=== PATIENT | female | born 1980 | race Caucasian/White ===

== ENCOUNTER → 2016-12-04 | Outpatient (CLI) | payer BC ==
[~2016-12-04] MED LIST: FOLI1TAB7 PO
--- NOTE | 2016-12-04 12:19 | DIAGNOSTIC IMAGING REPORT ---
HYSTEROSALPINGOGRAM HISTORY: Infertility. FLUOROSCOPY TIME: 0.7 minutes. 4 fluoroscopic spot images. TECHNIQUE: The cervix was cannulated by the manager mobility-animal feeder and water soluble contrast was instilled into the uterus under fluoroscopic guidance. Multiple spot images were obtained. FINDINGS: The uterine cavity is normal in size, shape, and position. The right fallopian tube is patent and there is free peritoneal spill on the right. The left fallopian tube was not identified and is likely obstructed. IMPRESSION: 1. Normal uterus and right fallopian tube. 2. The left fallopian tube was not identified and is likely obstructed. Electronically signed by: Elieser Mccarthy M.D. 12/04/2016 12:17 PM Dictated Date/Time: 12/04/2016 12:16 PM
--- NOTE | 2016-12-04 13:15 | OPERATIVE REPORT ---
DATE OF OPERATION: 12/04/2016 PREOPERATIVE DIAGNOSIS: Primary infertility. POSTOPERATIVE DIAGNOSIS: Same. PROCEDURE: Hysterosalpingogram. SURGEON: Dr. Sakshi Jenkins. INDICATIONS FOR PROCEDURE: The patient is currently undergoing infertility workup with Dr. Mejia who recommended a hystersalpingogram. DESCRIPTION OF PROCEDURE: The patient was placed on the x-ray table where procedure was discussed. All questions were answered. Correct patient and procedure was verified. The speculum was placed in the vagina. The cervix and vagina were cleansed with Betadine. The anterior lip of the cervix was grasped with a single tooth tenaculum. The acorn manipulator was placed through the cervix and the radiopaque dye was injected under fluoroscopic guidance. On first attempt the manipulator must have gotten dislodged because the radiopaque dye flooded the vagina and not the uterus. A second attempt was made with replaced of the speculum, recleansing with Betadine and replacement of the manipulator. Under fluoroscopic guidance, the dye was injected and the uterus appeared normal in contour and shape. The right fallopian tube had adequate spill, the left fallopian tube showed no spill. The patient tolerated the procedure well. She is to continue antibiotics and pain control as recommended by Dr. Mejia. She is to follow up with him in the office. I attest to the content of the Intraoperative Record and any orders documented therein. Any exceptions are noted below. MTDD
== END | disposition home or self-care (01) ==
LOC: C.RAD 10:30
PROVIDERS: ATTEND Obstetrics & Gynecology
DX: Z31.41 Encounter for fertility testing (principal)

== ENCOUNTER → 2017-02-16 | Outpatient (CLI) | payer BC ==
[~2017-02-16] MED LIST changes: +ACET-749 PO; +FAMO20TA11 PO
[2017-02-16 12:58] LABS: INSULIN FASTING 45.6 mU/L (3-25); INSULIN LOG 1.659
[2017-02-16 12:59] LABS: PROLACTIN 17.11 ng/mL
[2017-02-16 13:45] LABS: ALKALINE PHOSPHATASE 52 U/L (45-117); ALT/SGPT 24 U/L (12-78); BLOOD UREA NITROGEN 9 mg/dl (7-18); BUN/CREATININE RATIO 10.8 (10-20); CALCIUM 8.7 mg/dl (8.5-10.1); CARBON DIOXIDE 24 mmol/L (21-32); CHLORIDE 108 mmol/L (98-107); CREATININE 0.84 mg/dl (0.60-1.20); GLUCOSE 96 mg/dl (70-99); GLUCOSE,FASTING 96 mg/dl (70-99); POTASSIUM 3.8 mmol/L (3.5-5.1); SODIUM 140 mmol/L (136-145)
[2017-02-16 13:56] LABS: ALB/GLOB RATIO 1.1 (0.9-2); AST/SGOT 16 U/L (15-37)
[2017-02-16 14:38] LABS: CALCULATED INSULIN SENSITIVITY 0.275; GLUCOSE LOG 1.9823
== END | disposition home or self-care (01) ==
LOC: C.LAB1850 09:32
PROVIDERS: ATTEND Obstetrics & Gynecology
DX: Z31.41 Encounter for fertility testing (principal); Z32.00 Encounter for pregnancy test, result unknown; K76.0 Fatty (change of) liver, not elsewhere classified

== ENCOUNTER → 2017-03-09 | Outpatient (CLI) | payer BC ==
[2017-03-09 12:10] LABS: URINE APPEARANCE CLEAR (CLEAR); URINE BILIRUBIN NEG (NEG); URINE COLOR YELLOW; URINE NITRITE NEG (NEG); URINE SPECIFIC GRAVITY 1.011 (1.000-1.030); UROBILINOGEN NEG (NEG)
[2017-03-09 12:13] LABS: MANUAL MICROSCOPIC REQUIRED? NO; REVIEW REQ? NO
== END | disposition home or self-care (01) ==
LOC: C.LABSPEC 11:26
PROVIDERS: ATTEND Obstetrics & Gynecology
DX: O09.519 Supervision of elderly primigravida, unspecified trimester (principal)

== ENCOUNTER → 2017-03-16 | Outpatient (CLI) | payer BC ==
[2017-03-19 00:36] LABS: CHLAMYDIA TRACH RNA*** NOT DETECTED (NOT DETECTED); GC (NEIS GONORRHOEAE)RNA** NOT DETECTED (NOT DETECTED)
== END | disposition home or self-care (01) ==
LOC: C.LABSPEC 15:36
PROVIDERS: ATTEND Obstetrics & Gynecology
DX: O09.01 Supervision of pregnancy with history of infertility, first trimester (principal); Z3A.00 Weeks of gestation of pregnancy not specified

== ENCOUNTER → 2017-03-16 | Outpatient (CLI) | payer BC | END | disposition home or self-care (01) | LOC: C.PAPS 10:14 | PROVIDERS: ATTEND Obstetrics & Gynecology | DX: Z01.411 Encounter for gynecological examination (general) (routine) with abnormal findings (principal); O09.01 Supervision of pregnancy with history of infertility, first trimester ==

== ENCOUNTER → 2017-03-31 | Outpatient (CLI) | payer BC | END | disposition home or self-care (01) | LOC: C.LAB1850 11:53 | PROVIDERS: ATTEND Obstetrics & Gynecology | DX: O09.01 Supervision of pregnancy with history of infertility, first trimester (principal) ==

== ENCOUNTER → 2017-05-14 | Outpatient (CLI) | payer BC ==
[2017-05-14 15:18] LABS: GTGD 50 Grams
[2017-05-18 16:46] LABS: AFP CONCENTRATION 53.7 NG/ML; AFP MULTIPLE OF MEDIAN 2.07; AFPTS GESTATIONAL AGE 16.4 WEEKS; AFPTS INSULIN DEP DIABETIC? NO; AFPTS MATERNAL WT 216 LBS; ALPHA-FETOPROTEIN RACE HISPANIC=H; HISTORY OF NTD NO; REPEAT SAMPLE? NO
== END | disposition home or self-care (01) ==
LOC: C.LAB1850 12:07
PROVIDERS: ATTEND Obstetrics & Gynecology
DX: O09.512 Supervision of elderly primigravida, second trimester (principal); Z3A.00 Weeks of gestation of pregnancy not specified

== ENCOUNTER 2017-05-19 17:07 | Emergency (ER) | payer BC ==
[~2017-05-19] VITALS: Ht 177.8 cm; Wt 99.7 kg
[2017-05-19 17:12] VITALS: TEMP 36.8; Ht 177.8 cm; Wt 99.7 kg
[2017-05-19] MEDS ORDERED: SODIUM CHLORIDE 0.9% 1000ML 500 ML IV STA (17:35)
[2017-05-19] MEDS ORDERED: FOLI1TAB7 PO (17:48)
--- NOTE | 2017-05-19 17:57 | EMERGENCY ROOM VISIT NOTE ---
History Report prepared by Kristi: Surya Brooks Under the Supervision of: Dr. Miguel Palafox M.D. First contact with patient: 17:29 Chief Complaint: ABDOMINAL PAIN Stated Complaint: RLQ PAIN, 17 WKS , INCREASED PAIN History of Present Illness The patient is a 36 year old female who presents to the Emergency Room with complaints of waxing and waning right lower quadrant abdominal pain starting this morning. She has severe abdominal pain with urination. She currently rates a pain intensity of 5/10. She has worsening pain with walking and movement. She is currently 17 weeks . This is her first . She had a and ovarian ultrasound today which was normal for her 17 week except for uterine fibroids which have doubled in size since she became . The ultrasound showed sufficient oxygen and blood getting to the ovary. The baby's heart rate was 155. The patient was referred to the Emergency Room by her OB-OIL HEATER INSTALLER 's office for concerns about appendicitis. She denies any history of abdominal surgeries. The patient denies fevers, nausea, new lower back pain, vaginal bleeding/discharge, cloudy urine, foul smelling urine, diarrhea, or any other complaints. Source of History: patient Onset: this morning Position: abdomen (RLQ) Symptom Intensity: 5/10 Timing: waxes/wanes Modifying Factors (Worsening): movement, other (walking) Associated Symptoms: No fevers, No nausea, No diarrhea Review of Systems See HPI for pertinent positives & negatives. A total of 10 systems reviewed and were otherwise negative. Past Medical & Surgical Medical Problems: (1) Asthma (2) Cyst Surgical Problems: (1) History of tonsillectomy Family History Diabetes mellitus FH: heart disease Hypertension Social History Smoking Status: Never Smoker Alcohol Use: none Marital Status: Housing Status: lives with significant other Occupation Status: employed Current/Historical Medications Scheduled Folic Acid (Folvite), 1 MG PO DAILY Allergies Coded Allergies: Cephalexin (Verified Allergy, Severe, ANAPHYLAXIS, 05/19/17) Penicillins (Verified Allergy, Severe, ANAPHYLAXIS, 05/19/17) Sulfa Antibiotics (Verified Allergy, Mild, Hives, 05/19/17) Physical Exam Vital Signs Date Time Temp Pulse Resp B/P (MAP) Pulse Ox O2 Delivery O2 Flow Rate FiO2 05/19/17 19:17 61 18 117/63 99 Room Air 05/19/17 17:12 36.8 76 18 112/68 99 Room Air Physical Exam GENERAL: Patient is in no acute distress. HEENT: No acute trauma, normocephalic atraumatic, mucous membranes moist, no nasal congestion, no scleral icterus. NECK: No stridor, no adenopathy, no meningismus, trachea is midline. LUNGS: Clear to auscultation bilaterally, no wheeze, no rhonchi, breath sounds equal. HEART: Without murmurs gallops or rubs, regular rate and rhythm. ABDOMEN: Soft, bowel sounds positive, no hernias, no peritonitis. Tenderness in the right lower quadrant, gravid uterus to just below the umbilicus. EXTREMITIES: No cyanosis or edema, full range of motion of all the joints without pain or difficulty, no signs for acute trauma. NEUROLOGIC: Oriented x 3, no acute motor or sensory deficits, no focal weakness. SKIN: No rash, no jaundice, no diaphoresis. Medical Decision & Procedures Laboratory Results 05/19/17 18:11 Red Blood Count 4.56, Mean Corpuscular Volume 87.5, Mean Corpuscular Hemoglobin 30.0, Mean Corpuscular Hemoglobin Concent 34.3, Mean Platelet Volume 11.3, Neutrophils (%) (Auto) 72.1, Lymphocytes (%) (Auto) 17.1, Monocytes (%) (Auto) 8.3, Eosinophils (%) (Auto) 1.9, Basophils (%) (Auto) 0.2, Neutrophils # (Auto) 10.11, Lymphocytes # (Auto) 2.39, Monocytes # (Auto) 1.16, Eosinophils # (Auto) 0.26, Basophils # (Auto) 0.03 05/19/17 18:11 Test 05/19/17 18:00 05/19/17 18:11 Urine Color YELLOW Urine Appearance CLEAR (CLEAR) Urine pH 7.5 (4.5-7.5) Urine Specific [place] 1.011 (1.000-1.030) Urine Protein NEG (NEG) Urine Glucose (UA) NEG (NEG) Urine Ketones NEG (NEG) Urine Occult Blood NEG (NEG) Urine Nitrite NEG (NEG) Urine Bilirubin NEG (NEG) Urine Urobilinogen NEG (NEG) Urine Leukocyte Esterase NEG (NEG) White Blood Count 14.00 K/uL (4.8-10.8) Red Blood Count 4.56 M/uL (4.2-5.4) Hemoglobin 13.7 g/dL (12.0-16.0) Hematocrit 39.9 % (37-47) Mean Corpuscular Volume 87.5 fL (80-100) Mean Corpuscular Hemoglobin 30.0 pg (25-34) Mean Corpuscular Hemoglobin Concent 34.3 g/dl (32-36) Platelet Count 203 K/uL (130-400) Mean Platelet Volume 11.3 fL (7.4-10.4) Neutrophils (%) (Auto) 72.1 % Lymphocytes (%) (Auto) 17.1 % Monocytes (%) (Auto) 8.3 % Eosinophils (%) (Auto) 1.9 % Basophils (%) (Auto) 0.2 % Neutrophils # (Auto) 10.11 K/uL (1.4-6.5) Lymphocytes # (Auto) 2.39 K/uL (1.2-3.4) Monocytes # (Auto) 1.16 K/uL (0.11-0.59) Eosinophils # (Auto) 0.26 K/uL (0-0.5) Basophils # (Auto) 0.03 K/uL (0-0.2) RDW Standard Deviation 42.0 fL (36.4-46.3) RDW Coefficient of Variation 13.0 % (11.5-14.5) Immature Granulocyte % (Auto) 0.4 % Immature Granulocyte # (Auto) 0.05 K/uL (0.00-0.02) Anion Gap 8.0 mmol/L (3-11) Est Creatinine Clear Calc Drug Dose 153.5 ml/min Estimated GFR () 133.6 Estimated GFR (Non- 115.3 BUN/Creatinine Ratio 10.3 (10-20) Calcium Level 8.7 mg/dl (8.5-10.1) Total Bilirubin 0.3 mg/dl (0.2-1) Aspartate Amino Transf (AST/SGOT) 11 U/L (15-37) Alanine Aminotransferase (ALT/SGPT) 16 U/L (12-78) Alkaline Phosphatase 54 U/L (45-117) Total Protein 6.5 gm/dl (6.4-8.2) Albumin 3.0 gm/dl (3.4-5.0) Globulin 3.5 gm/dl (2.5-4.0) Albumin/Globulin Ratio 0.9 (0.9-2) Lipase 279 U/L (73-393) Laboratory results reviewed by me. Medications Administered Medications (Trade) Dose Ordered Sig/Ubaldo Route Start Time Stop Time Status Last Admin Dose Admin Sodium Chloride 500 ml @ 999 mls/hr Q31M STAT IV 05/19/17 17:35 05/19/17 18:05 DC 05/19/17 18:15 999 MLS/HR ED Course 1729: The patient was evaluated in room B09. A complete history and physical exam was performed. 1735: Sodium Chloride 500 ml @ 999 mls/hr IV 174: I discussed the patient's case with Dr. Guevara, radiologist with [facility]. He recommended MRI. 174: I updated the patient on Dr. Guevara's recommendations. 174: I discussed the patient's case with Dr. Hamilton, OB-OIL HEATER INSTALLER with [facility]. She reviewed the ultrasound and confirmed patient's report. She will go along with patient's wishes- MRI compared to waiting 24 hours. 1850: I updated the patient on her urine and lab testing. She is agreeable to a MRI. Medical Decision Differential diagnosis includes but is not limited to uterine pain, ovarian cyst , ovarian torsion, appendicitis, round ligament pain, UTI, musculoskeletal pain , nerve impingement. There is a mild leukocytosis which could be consistent with infection or just her . No concerning anemia. No significant electrolyte abnormality, kidney failure, hepatitis or pancreatitis. Urinalysis does not show hematuria or infection. MRI of the abdomen for appendicitis is pending. The patient received IV saline, she has not required anything for pain. I discussed her case with the radiologist on-call and with the OB doctor cert occupational therapy asst. The MRI was felt the test of choice. I was able to discuss the pelvic ultrasound results from earlier today with the OB doctor. The OB doctor on-call confirmed that the fibroids were larger than before and there were fibroids on the right. The fetus was healthy at 17 weeks. The right ovary showed good arterial flow and no evidence for torsion. At this point, the case is being assumed by Dr. Benjamin Woo, he will assume care. We await the MRI results. If the MRI is negative for appendicitis, the patient can go home with continued outpatient OB follow-up. If the MRI shows appendicitis, transfer may be needed. Consults Time Called: 173 Consulting Physician: Dr. Guevara, radiologist with [facility] Returned Call: 174 I discussed the patient's case with Dr. Guevara, radiologist with [facility]. He recommended MRI. Additional Consults: Time Called: 174 Consulted Physician: Dr. Hamilton, OB-OIL HEATER INSTALLER with [facility] Returned Call: 174 Additional Comments: I discussed the patient's case with Dr. Hamilton, OB-OIL HEATER INSTALLER with [facility]. She reviewed the ultrasound and confirmed patient's report. She will go along with patient's wishes- MRI compared to waiting 24 hours. Impression Primary Impression: Right lower quadrant abdominal pain Additional Impression: Scribe Attestation The scribe's documentation has been prepared under my direction and personally reviewed by me in its entirety. I confirm that the note above accurately reflects all work, treatment, procedures, and medical decision making performed by me. Departure Information Dispostion Still a Patient Referrals No Doctor, Assigned (PCP) Patient Instructions My [facility] Problem Qualifiers
[2017-05-19 18:28] LABS: BASO % 0.2 %; BASO ABS # 0.03 K/uL (0-0.2); COMPLETE YES; EOS % 1.9 %; HEMATOCRIT 39.9 % (37-47); IG% 0.4 %; LYMPH % 17.1 %; LYMPH ABS # 2.39 K/uL (1.2-3.4); MEAN CELL VOLUME 87.5 fL (80-100); MEAN CORPUSCULAR HGB CONC 34.3 g/dl (32-36); MEAN PLATELET VOLUME 11.3 fL (7.4-10.4); MONO % 8.3 %; NEUT % 72.1 %; PLATELET COUNT 203 K/uL (130-400); RED BLOOD COUNT 4.56 M/uL (4.2-5.4)
[2017-05-19 18:31] LABS: URINE APPEARANCE CLEAR (CLEAR); URINE BILIRUBIN NEG (NEG); URINE COLOR YELLOW; URINE NITRITE NEG (NEG); URINE PH 7.5 (4.5-7.5); URINE SPECIFIC GRAVITY 1.011 (1.000-1.030); UROBILINOGEN NEG (NEG); ZZUR CULT IF INDIC CLEAN CATCH NO
[2017-05-19 18:32] LABS: MANUAL MICROSCOPIC REQUIRED? NO; REVIEW REQ? NO
[2017-05-19 18:54] LABS: BUN/CREATININE RATIO 10.3 (10-20); CALCIUM 8.7 mg/dl (8.5-10.1); CREATININE 0.66 mg/dl (0.60-1.20); POTASSIUM 3.8 mmol/L (3.5-5.1)
[2017-05-19 18:57] LABS: ALB/GLOB RATIO 0.9 (0.9-2)
--- NOTE | 2017-05-19 21:19 | DIAGNOSTIC IMAGING REPORT ---
MRI ABDOMEN WITHOUT CONTRAST CLINICAL HISTORY: Right lower quadrant pain. 17 weeks . TECHNIQUE: Utilizing a 1.5 Gabi magnet, multiplanar, multi echo imaging of the abdomen and pelvis was performed without intravenous contrast. COMPARISON STUDY: No previous studies for comparison. FINDINGS: A single intrauterine gestation is noted. Note is made of numerous uterine lesions. These are mixed signal intensity on the T2-weighted sequences. The largest arises from the right anterior aspect of the uterus, measuring 4.4 x 3.3 cm. The placenta is located within the fundus. No free fluid is present. Caliber of visualized small and large bowel are normal. The appendix is normal, measuring 4 mm in caliber. There is no periappendiceal fluid or infiltration. There is mild right collecting system dilatation and mild dilatation of the proximal to mid right ureter with caliber change at the level of the gravid uterus shown best on axial image 13 of 37 on the axial T2 sequence. There is no left hydronephrosis. There is no perinephric fluid. Visualized portions of the liver, spleen, adrenal glands and pancreas are normal. IMPRESSION: 1. Normal appendix. 2. Single intrauterine gestation. Multiple uterine lesions suggestive of fibroids. 3. Mild right collecting system dilatation and mild dilatation of the right ureter to the level of the gravid uterus. This is likely due to mass effect upon the ureter by the uterus. Electronically signed by: Boris Guevara M.D. 05/19/2017 9:18 PM Dictated Date/Time: 05/19/2017 9:12 PM
[2017-05-19 21:57] VITALS: BP 110/55; PULSE 65; O2SAT 98
--- NOTE | 2017-05-20 02:57 | EMERGENCY ROOM VISIT NOTE ---
ED Visit Note First contact with patient: 20:48 36 yr old female signed out to me by Dr Palafox awaiting MRI results of abdomen for evaluation of appendicitis in 17 wk pt. MRI reveals mild right hydro and fibroids with normal appendix. Patient evaluated and stable without distress. Review of symptoms and she admits symptoms much improved with laying on left side and worse with laying on right side. I suspect her pain has been secondary to some induced mild hydronephrosis/hydro-ureter of right system, likely exacerbated by increase in fibroid size. She does not have appendicitis, is not septic and is stable. She has wbc 14 consistent with . UA is clear. Cr is good and she is comfortable. Stressed follow up with OB in next few days. RTED if worsening or other concerns.
[2017-08-15] MEDS ORDERED: ACET-749 PO (11:17)
== END 2017-05-19 21:58 | disposition home or self-care (01) ==
LOC: C.EDB 17:08
DX: O26.92 Pregnancy related conditions, unspecified, second trimester (principal); R10.31 Right lower quadrant pain; J45.909 Unspecified asthma, uncomplicated; Z98.890 Other specified postprocedural states; Z79.899 Other long term (current) drug therapy; Z88.0 Allergy status to penicillin; Z88.2 Allergy status to sulfonamides; Z88.8 Allergy status to other drugs, medicaments and biological substances; Z83.3 Family history of diabetes mellitus; Z82.49 Family history of ischemic heart disease and other diseases of the circulatory system

== ENCOUNTER → 2017-05-19 | Outpatient (CLI) | payer BC ==
[2017-05-19 18:53] LABS: URINE APPEARANCE CLEAR (CLEAR); URINE BILIRUBIN NEG (NEG); URINE COLOR YELLOW; URINE NITRITE NEG (NEG); URINE SPECIFIC GRAVITY 1.008 (1.000-1.030); UROBILINOGEN NEG (NEG)
[2017-05-19 18:57] LABS: MANUAL MICROSCOPIC REQUIRED? YES; REVIEW REQ? NO
[2017-05-19 19:11] LABS: URINE BACTERIA 1+ (NEG); URINE RBC 0-4 /hpf (0-4)
== END | disposition home or self-care (01) ==
LOC: C.LABSPEC 17:34
PROVIDERS: ATTEND Obstetrics & Gynecology
DX: R39.9 Unspecified symptoms and signs involving the genitourinary system (principal)

== ENCOUNTER → 2017-08-06 | Outpatient (CLI) | payer BC ==
[2017-08-06 16:50] LABS: HEMATOCRIT 37.3 % (37-47)
[2017-08-06 18:18] LABS: URINE APPEARANCE CLEAR (CLEAR); URINE BILIRUBIN NEG (NEG); URINE COLOR YELLOW; URINE EPITHELIAL CELL AUTO 0-5 /lpf (0-5); URINE NITRITE NEG (NEG); URINE SPECIFIC GRAVITY 1.018 (1.000-1.030); UROBILINOGEN NEG (NEG)
[2017-08-06 18:30] LABS: MANUAL MICROSCOPIC REQUIRED? NO; REVIEW REQ? NO
[2017-08-06 19:10] LABS: GTGD 50 Grams
== END | disposition home or self-care (01) ==
LOC: C.LAB1850 14:41
PROVIDERS: ATTEND Obstetrics & Gynecology
DX: O09.513 Supervision of elderly primigravida, third trimester (principal); Z3A.00 Weeks of gestation of pregnancy not specified

== ENCOUNTER → 2017-08-13 | Outpatient (CLI) | payer BC | END | disposition home or self-care (01) | LOC: C.LAB1850 06:55 | PROVIDERS: ATTEND Obstetrics & Gynecology | DX: O28.1 Abnormal biochemical finding on antenatal screening of mother (principal); Z3A.00 Weeks of gestation of pregnancy not specified ==

== ENCOUNTER 2017-08-15 09:20 | Outpatient (CLI) | payer BC ==
[~2017-08-15] VITALS: Ht 177.8 cm; Wt 102.7 kg
[~2017-08-15 09:20] MED LIST changes: -ACET-749 PO; -FAMO20TA11 PO
[2017-08-15] MEDS ORDERED: FAMO20TA11 PO (10:32)
[2017-08-15 10:33] LABS: BASO % 0.1 %; BASO ABS # 0.02 K/uL (0-0.2); COMPLETE YES; EOS % 1.2 %; HEMATOCRIT 36.5 % (37-47); IG% 0.3 %; LYMPH ABS # 2.07 K/uL (1.2-3.4); MEAN CELL VOLUME 88.2 fL (80-100); MEAN PLATELET VOLUME 11.1 fL (7.4-10.4); MONO % 6.8 %; NEUT % 77.6 %; PLATELET COUNT 215 K/uL (130-400); RED BLOOD COUNT 4.14 M/uL (4.2-5.4); WHITE BLOOD COUNT 14.74 K/uL (4.8-10.8)
[2017-08-15 10:37] VITALS: Ht 177.8 cm; Wt 102.7 kg
[2017-08-15 10:54] LABS: BUN/CREATININE RATIO 12.4 (10-20); CALCIUM 8.5 mg/dl (8.5-10.1); CREATININE 0.63 mg/dl (0.60-1.20); POTASSIUM 3.6 mmol/L (3.5-5.1)
[2017-08-15 10:56] LABS: URINE APPEARANCE CLEAR (CLEAR); URINE BILIRUBIN NEG (NEG); URINE COLOR YELLOW; URINE EPITHELIAL CELL AUTO >30 /lpf (0-5); URINE NITRITE NEG (NEG); URINE PH 5.5 (4.5-7.5); URINE SPECIFIC GRAVITY 1.023 (1.000-1.030); UROBILINOGEN NEG (NEG)
[2017-08-15 10:57] LABS: ALB/GLOB RATIO 0.7 (0.9-2)
[2017-08-15 10:57] LABS: MANUAL MICROSCOPIC REQUIRED? NO; REVIEW REQ? YES
[2017-08-15] MEDS ORDERED: ACET-749 PO (11:17)
--- NOTE | 2017-08-15 11:19 | Discharge Instructions ---
Discharge Instructions Date of Service Aug 15, 2017. Admission Reason for Admission: Abd Pain Discharge Discharge Diagnosis / Problem: degenerating fibroid Discharge Goals Goal(s): Continuing OB care Activity Recommendations Activity Limitations: per Instructions/Follow-up section . Instructions / Follow-Up Instructions / Follow-Up ACTIVITY RECOMMENDATIONS: See Labor Sheet. SPECIAL CARE INSTRUCTIONS: Call Doctor if: * Regular contractions every 2 minutes or greater than 10 contractions in one hour. * Bleeding * Water breaks or is leaking * Decreased movement * Fever >100.4 degrees F * Pain not relieved by routine measures or pain medication ordered. FOLLOW UP VISIT: As scheduled. Current Hospital Diet Patient's current hospital diet: Discharge Diet Recommended Diet: Regular OB Diet Pending Studies Studies pending at discharge: yes List of pending studies: urine culture Medical Emergencies . Who to Call and When: Medical Emergencies: If at any time you feel your situation is an emergency, please call 911 immediately. . Non-Emergent Contact Non-Emergency issues call your: Primary Care Provider, Picture Framer . . "Provider Documentation" section prepared by Sakshi Jenkins. . VTE Core Measure Inpt VTE Proph given/why not?: Treatment not indicated [place] Drug Monitoring Program Search Results: no issues identified
== END 2017-08-15 11:35 | disposition home or self-care (01) ==
LOC: C.OPB 09:20 → C.LD 09:21 → C.OPB 11:35
PROVIDERS: ATTEND Obstetrics & Gynecology
DX: O34.13 Maternal care for benign tumor of corpus uteri, third trimester (principal); D25.9 Leiomyoma of uterus, unspecified; Z3A.29 29 weeks gestation of pregnancy

== ENCOUNTER → 2017-09-29 | Outpatient (CLI) | payer BC ==
[~2017-09-29] MED LIST changes: +FAMO20TA11 PO
== END | disposition home or self-care (01) ==
LOC: C.LABSPEC 17:30
PROVIDERS: ATTEND Obstetrics & Gynecology
DX: O09.513 Supervision of elderly primigravida, third trimester (principal)

== ENCOUNTER 2017-10-19 05:46 | Inpatient (IN) | payer BC ==
[~2017-10-19] VITALS: Ht 177.8 cm; Wt 102.3 kg
[~2017-10-19 05:46] MED LIST changes: -FOLI1TAB7 PO; +FOLI1TAB8 PO
[2017-10-19] MEDS ORDERED: LACTATED RINGER'S 1000ML 1,000 ML IV PRN (06:05)
[2017-10-19] MEDS ORDERED: VANCOMYCIN INJ 1,000 MG in SODIUM CHLORIDE 0.9% 250ML 250 ML IV PRN (06:15)
[2017-10-19 06:42] LABS: HEMATOCRIT 39.2 % (37-47); MEAN CELL VOLUME 85.8 fL (80-100); MEAN CORPUSCULAR HEMOGLOBIN 28.9 pg (25-34); MEAN CORPUSCULAR HGB CONC 33.7 g/dl (32-36); MEAN PLATELET VOLUME 12.1 fL (7.4-10.4); PLATELET COUNT 188 K/uL (130-400); RED BLOOD COUNT 4.57 M/uL (4.2-5.4); WHITE BLOOD COUNT 18.65 K/uL (4.8-10.8)
[2017-10-19] MEDS ORDERED: BUPIVACAINE 0.25% 30 ML VIAL ONE (06:47)
[2017-10-19] MEDS ORDERED: EpHEDrine SULFATE INJ 50 MG/ML AMP ONE (06:47)
[2017-10-19] MEDS ORDERED: FENTANYL 2MCG/ML ROPIV 1.25MG/ML 100ML BAG EPI ONE (06:48)
[2017-10-19] MEDS ORDERED: FENTANYL CITRATE INJ 50 MCG/1 ML 2 ML VIAL ONE (06:48)
[2017-10-19] MEDS: LACTATED RINGER'S 1000ML 1,000 ML IV SCH ×2 (07:26→08:46)
[2017-10-19 07:41] VITALS: Ht 177.8 cm; Wt 102.3 kg
[2017-10-19] MEDS ORDERED: LACTATED RINGER'S 1000ML 500 ML IV PRN (08:49)
[2017-10-19] MEDS ORDERED: NALOXONE HCL INJ 1 MG in SODIUM CHLORIDE 0.9% 1000ML 1,000 ML IV PRN (08:49)
[2017-10-19] MEDS ORDERED: DiphenhydrAMINE HCL 50 MG/ML VIAL IV PRN (09:00)
[2017-10-19] MEDS ORDERED: EpHEDrine SULFATE INJ 50 MG/ML AMP IV PRN (09:00)
[2017-10-19] MEDS ORDERED: ONDANSETRON INJ 2 MG/ML 2 ML VIAL IV PRN (09:00)
[2017-10-19] MEDS ORDERED: NALBUPHINE HCL INJ 10 MG/ML AMP IV PRN (09:00)
[2017-10-19] MEDS ORDERED: NALOXONE HCL INJ 0.4 MG/1 ML VIAL/CARP IV PRN (09:00)
[2017-10-19] MEDS ORDERED: FENTANYL 2MCG/ML ROPIV 1.25MG/ML 100ML BAG EPI PRN (09:00)
[2017-10-19] MEDS ORDERED: OXYTOCIN 30 UNITS/500ML NSS IV ONE (09:17)
--- NOTE | 2017-10-19 09:43 | Vaginal Delivery Summary ---
Vaginal Delivery Summary Called to see patient urgently due to decelerations in the 60s. Upon my arrival the patient was in knee-chest position. Vaginal exam revealed complete dilatation with cephalic at +3 to +4 station. The patient was returned to her lateral position and reexamined. The heart tones remained in the 60s despite attempt at scalp stimulation and maternal repositioning. She was readied for delivery. She did not have an urge to push. She was counseled regarding outlet vacuum assistance and informed consent was obtained. The vacuum was applied and with one contraction the cephalic was delivered. A loose nuchal cord was noted and delivered through. The infant's cord was clamped and the mouth and nose were suctioned. The was somewhat floppy and therefore was taken to maternal abdomen where the cord was doubly clamped and cut and she was taken to the radiant warmer. Viable female infant with Apgars 3 and 9. Partial third-degree laceration was noted. It was repaired in multiple layers in usual fashion using 2-0 and 3-0 Vicryl. Rectal exam with no sutures in the rectum. Cervix and sulci intact. Placenta delivered spontaneously and intact. Three-vessel cord noted. Hemostasis achieved with dilute Pitocin and uterine massage. With uterine massage, clear yellow urine was draining of approximately 100 cc's. EBL 300 cc. Mother and baby stable in recovery. Cord blood and cord gases obtained. A specimen for cord blood donation was obtained. Circumstances surrounding the delivery were reviewed with the patient and partner. They verbalized understanding and denied any questions.
[2017-10-19] MEDS ORDERED: OXYCODONE/ACETAMINOPHEN 5-325 TAB PO PRN (09:45)
[2017-10-19] MEDS ORDERED: OXYTOCIN 30 UNITS/500ML NSS IV PRN (09:45)
[2017-10-19] MEDS ORDERED: OXYTOCIN INJ 10 UNITS/ML VIAL IM ONE (09:45)
[2017-10-19] MEDS ORDERED: BENZOCAINE 20% AER SPR 82.5 GM CAN EXT PRN (09:45)
[2017-10-19] MEDS ORDERED: SUPERCREAM 0.870 % 15GM JAR EXT PRN (09:45)
[2017-10-19] MEDS ORDERED: HYDROCORTISONE ACETATE 25 MG SUPP PR PRN (09:45)
[2017-10-19] MEDS ORDERED: ACETAMINOPHEN/CODEINE 300/30MG TAB PO PRN ×2 (09:45)
[2017-10-19] MEDS ORDERED: LANOLIN OINT EXT PRN ×2 (09:45)
--- NOTE | 2017-10-19 11:10 | Anesthesia Procedure Note ---
Anesthesia Epidural Removal Nt Date & Time Oct 19, 2017 at 11:10 Notes Mental Status: alert / awake / arousable, participated in evaluation Nausea / Vomiting: adequately controlled Pain: adequately controlled Airway Patency, RR, SpO2: stable & adequate BP & HR: stable & adequate Hydration State: stable & adequate Neuraxial Anesthesia: was administered Anesthetic Complications: no major complications apparent, pt satisfied with anesthetic care Epidural: removed without complications, with tip intact
[2017-10-19] MEDS: ACETAMINOPHEN 325 MG TAB PO PRN ×2 (12:18→19:29)
[2017-10-19 12:22] VITALS: BP 120/72; PULSE 75; TEMP 37
[2017-10-19 15:25] VITALS: BP 134/73; PULSE 58; TEMP 36.3
[2017-10-19 19:05] VITALS: BP 122/66; PULSE 65; TEMP 36.2
[2017-10-19] MEDS: DOCUSATE SODIUM 100 MG CAP PO SCH (19:28)
[2017-10-19] MEDS: IBUPROFEN 600 MG TAB PO PRN (20:57)
[2017-10-20 00:30] VITALS: BP_SYST 113; BP_SYST 121; BP_DIAS 69; BP_DIAS 72; PULSE 65; TEMP 36.8
[2017-10-20 04:30] VITALS: BP 128/72; TEMP 36.7
--- NOTE | 2017-10-20 06:32 | Progress Note ---
Subjective Oct 20, 2017. Subjective conversation w/ patient, physical exam Ambulation: ambulating normally Voiding: no voiding problems Diet Tolerance: Regular Diet Lochia: Moderate Feeding Type: Breast Feeding Pain: bottom sore Objective Vital Signs Date Time Temp Pulse Resp B/P (MAP) Pulse Ox O2 Delivery O2 Flow Rate FiO2 10/20/17 04:30 36.7 18 128/72 (90) Room Air 10/20/17 00:30 Room Air 10/20/17 00:30 36.8 65 18 121/72 (88) Room Air 10/19/17 19:05 36.2 65 16 122/66 (84) Room Air 10/19/17 15:25 36.3 58 16 134/73 (93) Room Air 10/19/17 12:22 37.0 75 20 120/72 Physical Exam General Appearance: WELL-APPEARING, WD/WN, NO APPARENT DISTRESS Respiratory/Chest: lungs clear Cardiovascular: regular rate, rhythm Abdomen: non tender, soft Fundus: Firm, Relation to Umbilicus (2 down) Extremities: non-tender Laboratory Results Last 24 Hours Test 10/20/17 04:44 Assessment and Plan Problem List Medical Problems: (1) Hydronephrosis, right Status: Acute (2) Status: Acute (3) Right lower quadrant abdominal pain Status: Acute Post- Day#: 1 Continue Routine Care: stable, routine care. patient asking about baby's need for resuscitation and i advised her to review with peds. she asks about use of vacuum at [facility] and discussed use and indications.
[2017-10-20 07:53] LABS: HEMATOCRIT 31.1 % (37-47)
[2017-10-20 08:00] VITALS: BP 119/72; PULSE 70; TEMP 36.7
[2017-10-20] MEDS: PRENATAL VITAMIN TAB PO SCH (08:00)
[2017-10-20] MEDS: FERROUS SULFATE 325 MG TAB PO SCH (08:00)
[2017-10-20] MEDS: IBUPROFEN 600 MG TAB PO PRN ×3 (08:08→17:28)
[2017-10-20] MEDS: DOCUSATE SODIUM 100 MG CAP PO SCH ×2 (08:08→21:24)
[2017-10-20] MEDS: ACETAMINOPHEN 325 MG TAB PO PRN ×2 (08:09→15:42)
[2017-10-20 15:39] VITALS: BP 121/74; PULSE 75; TEMP 36.6
[2017-10-20 23:35] VITALS: BP 127/76; PULSE 63; TEMP 36.6
[2017-10-21] MEDS: IBUPROFEN 600 MG TAB PO PRN (05:13)
--- NOTE | 2017-10-21 07:12 | Progress Note ---
Subjective Oct 21, 2017. Subjective conversation w/ patient, physical exam, chart review, lab review Ambulation: ambulating normally Voiding: no voiding problems Passing Gas: Yes Diet Tolerance: Regular Diet Lochia: Moderate Feeding Type: Breast Feeding Pain: controlled Review of Systems Respiratory: No shortness of breath Abdomen: No vomiting Female : No dysuria Objective Vital Signs Date Time Temp Pulse Resp B/P (MAP) Pulse Ox O2 Delivery O2 Flow Rate FiO2 10/20/17 23:35 36.6 63 16 127/76 (93) Room Air 10/20/17 23:35 Room Air 10/20/17 15:39 36.6 75 18 121/74 (90) Room Air 10/20/17 15:30 Room Air 10/20/17 08:00 36.7 70 18 119/72 (88) Room Air 10/20/17 08:00 Room Air Physical Exam General Appearance: WELL-APPEARING, WD/WN, NO APPARENT DISTRESS Respiratory/Chest: lungs clear, normal breath sounds, no respiratory distress Cardiovascular: regular rate, rhythm, no gallop Abdomen: normal bowel sounds, soft Fundus: Firm, Non-Tender, Relation to Umbilicus (1 below U) Extremities: non-tender, normal inspection Assessment and Plan Post- Day#: 2 Continue Routine Care: Resident Physician Supervision Note: I interviewed and examined the patient. Discussed with Dr. Stephen and agree with findings and plan as documented in the note. Any exceptions or clarifications are listed here: [None] Documented By: Chary Cardona Pt , delivered 10/19, with third degree partial tear. AB-/GBS+ Vitals reviewed and wnl. Hgb 13.2, 10. Stable. No s/s anemia. Pt doing well clinically, desires to go home. Counselled on DC instructions. Continue routine care. CHANTELLE STEPHEN FMR PGY 1 Resident Tracking Resident Involvement: Resident Care Provided Care Provided: OB Delivery
--- NOTE | 2017-10-21 07:50 | Discharge Instructions ---
Discharge Instructions Date of Service Oct 21, 2017. Admission Reason for Admission: LABOR Discharge Discharge Diagnosis / Problem: Spontaneous vaginal delivery Discharge Goals Goal(s): Routine recovery after surgery Medications Continue Dispensed Medications: supercream, dermaplast, tucks, lansinoh Activity Recommendations Activity Limitations: per Instructions/Follow-up section . Instructions / Follow-Up Instructions / Follow-Up PLEASE CALL THE OFFICE FOR A BLOOD PRESSURE CHECK TO BE DONE IN 2 WEEKS. ACTIVITY RECOMMENDATIONS: * Gradual return to full activity over the next 2-3 weeks. * No lifting - nothing heavier than baby over the next 2-3 weeks. * Do not engage in vigorous exercise, sexual activity or sports until cleared by your physician. * Do not drive or operate any motorized equipment until cleared by your physician. * You may shower/bathe daily. MEDICATIONS: For discomfort or pain, you may use Acetaminophen (Tylenol), Ibuprofen (Advil), or Naproxen (Aleve) following the package directions. For constipation you may use Colace following the package directions. BREAST CARE: If you are not breast feeding: * Wear a supportive bra 24 hours a day for one to two weeks. * Avoid stimulating your breasts and nipples as much as possible during the first few weeks after delivery. * When taking a shower, have the warm water hit your back, not breasts. * When your breasts feel full, apply ice packs. Usually three to four times a day helps ease the discomfort. * Take a mild pain medication (Tylenol / Motrin) when you are uncomfortable. If breast feeding: * Use breast milk to lubricate nipples. Lansinoh cream may be used for sore nipples. You do not need to remove cream prior to breast feeding. If using a different brand of cream, check the label for directions regarding removal of cream prior to nursing. * Wear a supportive bra. * If having problems with breasts or breast feeding, call a review consultant or your health care provider. EPISIOTOMY CARE: After delivery, if you have an episiotomy (stitches), the following steps will ease discomfort and aid healing. * For the first 24 hours after delivery, place ice packs next to your episiotomy to help reduce swelling. * After the first 24 hour-period, sitz baths, either portable or in the tub, are suggested. A shower with a shower arm sprayed over the episiotomy may be comforting. * Phyllis care should be done after each voiding and bowel movement. Squirt warm water from a plastic bottle over the perineum (region of the body between the anus and urinary opening) and pat dry. * Use Dermoplast to ease discomfort. Shake container. [place] directly over the episiotomy. Place a Tucks on a clean sanitary pad next to your episiotomy. SPECIAL CARE INSTRUCTIONS: When you are discharged from the hospital, it is important for you to follow the instructions listed below: * During the first week at home, you should be able to care for yourself and your baby. In addition, the usual light household activities are encouraged. * Limit your activities to the way you feel. Do not try to clean the house or move furniture. Be sensible. * If you actively engage in sports and have done so up until the time of your delivery, you may resume these activities as soon as you feel able. This may take up to one month or even longer. Use good judgment. * Continue to take your vitamins for at least six weeks after the of your baby. * Your diet need not be limited unless you were on a special diet before your delivery. Breast-feeding mothers need around 2500 calories per day and at least 64-80 ounces of fluid per day (8 to 10 glasses). * You should eat foods from the four major food groups. Crash diets or fad diets are to be avoided. Eating lean meats, fresh fruits and vegetables, low-fat dairy products, high fiber foods and a regular exercise program, will help you get back to your pre- weight without putting your health at risk. * Constipation is sometimes a problem after delivery. Take a mild laxative as needed. If breast feeding, Milk of Magnesia is acceptable to use. You may use a suppository or Fleets enema if no episiotomy. * A daily shower or tub bath is suggested. Be sure to thoroughly and gently dry the perineum. * A bloody vaginal discharge will usually continue until around four weeks post . A small amount of bleeding may continue for as long as six weeks. Vaginal discharge changes from the bright red bleeding after delivery to pink then brownish and finally yellowish-pink before becoming white and disappearing. * Bleeding may increase with activity. Your first period may come in 4-8 weeks. If you are breast feeding, your period may be delayed even longer. * Compo (sex) can begin whenever both you and your partner feel comfortable and do not have any form of genital infection. It is recommended that you wait at least six weeks for internal and external healing to occur. If you have questions, please talk to your health care practitioner. A condom should be used to prevent infection and . * Foreplay, gentle intercourse and lubrication is very important the first several times to prevent pain. A water-based lubricant such as K-Y jelly or Astroglide may be used. * If you have RH negative blood and your baby is RH positive, you will receive RHOGAM by injection prior to discharge. The nurse will give you a card to keep with you that has the date and place that you received RHOGAM after delivery. * During your care, you had a Rubella screen done to check for the presence of rubella antibodies in your blood. If your test was negative, you will receive a Rubella vaccine prior to discharge. This vaccine may cause a fever, soreness at the injection site and flu-like symptoms. If these symptoms persist, notify your health care practitioner. is not advised for one month after a Rubella vaccine. * Verbalizes understanding of car seat law as reviewed with patient nursing. * Car Seat hand-out given and reviewed with patient by nursing. * Shaken baby information reviewed with patient by nursing. Call you doctor if: * Heavy bleeding (saturating several pads an hour) or passing clots the size of your fist. * A fever >101 degrees F (38.3 degrees C) on two occasions four hours apart and /or chills. * Unusual pain in the pelvic or vaginal areas. * "Baby Blues" lasting longer than two weeks. If you have any questions or concerns, call your health care practitioner at . FOLLOW UP VISIT: * Please call the office at to schedule a 6 week examination. It is important you keep this appointment. It is important for you to make arrangements for either yearly or twice yearly check-ups thereafter. Current Hospital Diet Patient's current hospital diet: Regular OB Diet Discharge Diet Recommended Diet: Regular OB Diet Pending Studies Studies pending at discharge: no Medical Emergencies . Who to Call and When: Medical Emergencies: If at any time you feel your situation is an emergency, please call 911 immediately. . Non-Emergent Contact Non-Emergency issues call your: Primary Care Provider . . "Provider Documentation" section prepared by Shanon Stephen. . VTE Core Measure Inpt VTE Proph given/why not?: Treatment not indicated
[2017-10-21 07:56] VITALS: BP 131/79; PULSE 68; TEMP 36.5
[2017-10-21] MEDS: DOCUSATE SODIUM 100 MG CAP PO SCH (07:59)
[2017-10-21] MEDS: FERROUS SULFATE 325 MG TAB PO SCH (08:00)
[2017-10-21] MEDS: PRENATAL VITAMIN TAB PO SCH (08:00)
[2017-10-21] MEDS: ACETAMINOPHEN 325 MG TAB PO PRN (09:57)
[2017-10-21 14:21] VITALS: BP 121/73; PULSE 80
[2017-10-21 14:27] VITALS: BP_DIAS 73; PULSE 80; TEMP 36.5
== END 2017-10-21 14:45 | disposition home or self-care (01) | DRG 775 ==
LOC: C.OPB 05:46 → C.LD 05:46 → C.OPB 06:05 → C.OBG 12:12 → EDSTATUS 10-26 05:45
PROVIDERS: ADMIT Obstetrics & Gynecology; ATTEND Obstetrics & Gynecology
PROC: 0DQR0ZZ Repair Anal Sphincter, Open Approach (ICD-10-PCS; principal; 2017-10-19)
PROC: 10D07Z6 Extraction of Products of Conception, Vacuum, Via Natural or Artificial Opening (ICD-10-PCS; principal; 2017-10-19)
DX: O99.824 Streptococcus B carrier state complicating childbirth (principal); O76 Abnormality in fetal heart rate and rhythm complicating labor and delivery; O69.81X0 Labor and delivery complicated by cord around neck, without compression, not applicable or unspecified; O70.20 Third degree perineal laceration during delivery, unspecified; Z3A.39 39 weeks gestation of pregnancy; Z37.0 Single live birth; Z88.0 Allergy status to penicillin; Z88.1 Allergy status to other antibiotic agents